=== PATIENT | female | born 1965 | race Caucasian/White ===

== ENCOUNTER 2019-12-19 08:49 | Outpatient (CLI) | payer OTHER, SELFPAY ==
--- NOTE | 2019-12-19 08:55 | MM_ITS ---
WS: [id number] DIAGNOSTIC BILATERAL DIGITAL MAMMOGRAM WITH CAD HISTORY: HX OF BREAST CA COMPARISON: 12/17/2018, 11/29/2017 and 11/27/2016 TECHNIQUE: Bilateral craniocaudad, mediolateral oblique, and mediolateral views are submitted. Comput er aided detection utilized. Breast composition: There are scattered areas of fibroglandular density. Volume loss and postsurgical lumpectomy changes in the LEFT breast towards the upper outer quadrant. No new or increasing soft ti ssue mass or asymmetries. No suspicious calcifications. Long-term stability of a focal asymmetry uppe r outer quadrant RIGHT breast. MM/[place] [id number] IMPRESSION: BI-RADS: 2-Benign FOLLOW UP: 1 Year Follow-up
== END 2019-12-19 08:50 | disposition home or self-care (01) ==
LOC: RADSHAW 08:52
PROVIDERS: PCP Internal Medicine; Visit Provider Internal Medicine Medical Oncology
DX: Z85.3 Personal history of malignant neoplasm of breast (principal)
CPT/HCPCS: 77066

== ENCOUNTER 2019-12-22 06:01 | Outpatient (CLI) | payer OTHER, SELFPAY ==
[2019-12-22 11:10] LABS: Basophils # 0.1 10^3/uL (0.0-0.1); Basophils % 0.8 %; Eosinophils # 0.1 10^3/uL (0.0-0.8); Eosinophils % 0.8 %; Hematocrit 39.6 % (37.0-47.0); Mean Corpuscular HGB Conc 32.8 g/dL (30.0-36.0); Mean Corpuscular Hemoglobin 29.5 pg (28.0-34.0); Mean Platelet Volume 12.4 fL (7.4-10.4); Monocytes # 0.6 10^3/uL (0.2-0.9); Monocytes % 7.3 %; Neutrophils % 51.8 %; Nucleated Red Blood Cells % 0 %; Platelet Count 108 10^3/cmm (130-400); Red Cell Distribution Width 12.4 % (12.1-15.1); White Blood Count 7.7 10^3/uL (4.0-10.0)
[2019-12-22 11:44] LABS: Alanine Aminotransferase 16 U/L (0-33); Albumin Level 4.5 g/dL (3.5-5.2); Alkaline Phosphatase 68 IU/L (35-105); Anion Gap 13.4 (5-19); Aspartate Amino Transferase 16 U/L (0-32); Blood Urea Nitrogen 23 mg/dL (6-20); Carbon Dioxide 24 mmol/L (22-29); Chloride 105 mmol/L (98-107); Globulin 3.3 g/dL (1.3-4.6); Glomerular Filtration Rate 75.3 mL/min (90-130); Glucose 103 mg/dL (65-115); Osmolality Calculated 283 mOsm/kg (285-295); Potassium 4.4 mmol/L (3.5-5.1); Sodium 138 mmol/L (136-145); Total Bilirubin 0.4 mg/dL (0.15-1.2); Total Protein 7.8 g/dL (6.6-8.7)
[2019-12-23 02:00] LABS: 25 Hydroxy Vitamin D 99 ng/mL (30-100)
[2019-12-23 09:26] LABS: LAB Peripheral Smear Sent for Review
== END 2019-12-22 23:55 | disposition home or self-care (01) ==
PROVIDERS: PCP Internal Medicine; Visit Provider Internal Medicine Medical Oncology
DX: C50.412 Malignant neoplasm of upper-outer quadrant of left female breast (principal); E55.9 Vitamin D deficiency, unspecified
CPT/HCPCS: 36415; 80053; 82306; 85025

== ENCOUNTER 2020-04-01 09:07 | Outpatient (CLI) | payer OTHER, SELFPAY ==
[2020-04-01 09:57] LABS: Basophils # 0.1 10^3/uL (0.0-0.1); Basophils % 0.9 %; Eosinophils # 0.1 10^3/uL (0.0-0.8); Eosinophils % 1.1 %; Hematocrit 40.2 % (37.0-47.0); Hemoglobin 13.4 g/dL (11.5-15.3); Lymphocytes # 2.7 10^3/uL (0.8-4.8); Lymphocytes % 38.9 %; Mean Corpuscular HGB Conc 33.3 g/dL (30.0-36.0); Mean Corpuscular Hemoglobin 29.8 pg (28.0-34.0); Mean Corpuscular Volume 89.3 fL (81-99); Mean Platelet Volume 11.9 fL (7.4-10.4); Monocytes # 0.5 10^3/uL (0.2-0.9); Monocytes % 7.7 %; Neutrophils # 3.59 10^3/uL (1.8-7.7); Neutrophils % 51.3 %; Nucleated Red Blood Cells % 0 %; Platelet Count 160 10^3/cmm (130-400); Red Cell Distribution Width 12.7 % (12.1-15.1)
[2020-04-01 09:59] LABS: LAB Peripheral Smear Sent for Review
== END 2020-04-01 09:08 | disposition home or self-care (01) ==
LOC: ONCMED 09:11
PROVIDERS: PCP Internal Medicine; Visit Provider Internal Medicine Medical Oncology
DX: C50.412 Malignant neoplasm of upper-outer quadrant of left female breast (principal); Z17.1 Estrogen receptor negative status [ER-]; D69.6 Thrombocytopenia, unspecified
CPT/HCPCS: 36415; 85025

== ENCOUNTER → 2020-12-24 08:09 | Outpatient (BNVA) | payer OTHER, SELFPAY | PROVIDERS: Family Provider Family Medicine; PCP Family Medicine; Visit Provider Family Medicine | DX: Z76.89 Persons encountering health services in other specified circumstances (principal); Z13.220 Encounter for screening for lipoid disorders; Z13.6 Encounter for screening for cardiovascular disorders | CPT/HCPCS: 80053; 80061; 84443; 85025 ==

== ENCOUNTER 2021-02-08 09:10 | Outpatient (CLI) | payer OTHER, SELFPAY ==
--- NOTE | 2021-02-08 09:30 | MM_ITS ---
WS: [id number] DIAGNOSTIC BILATERAL DIGITAL MAMMOGRAM WITH CAD HISTORY: HX OF BREAST CA COMPARISON: 12/19/2019, 12/17/2018 and 11/29/2017 TECHNIQUE: Bilateral craniocaudad, mediolateral oblique, and mediolateral views are submitted. Comput er aided detection utilized. Breast composition: There are scattered areas of fibroglandular density. Architectural distortion and asymmetry in the upper outer quadrant of the LEFT breast at the scar site. Reviewing multiple prior examinations the postsurgical site is very similar to 11/29/2017. No recurrent mass is or calcification s identified. MM/[place] [id number] IMPRESSION: BI-RADS: 2-Benign FOLLOW UP: 1 Year Follow-up
== END 2021-02-08 09:11 | disposition home or self-care (01) ==
LOC: RADSHAW 09:15
PROVIDERS: PCP Family Medicine; Visit Provider Family Medicine
DX: Z85.3 Personal history of malignant neoplasm of breast (principal)
CPT/HCPCS: 77066

== ENCOUNTER → 2021-11-09 14:30 | Outpatient (BNVA) | payer OTHER, SELFPAY | PROVIDERS: PCP Family Medicine; Visit Provider Family Medicine | DX: M25.552 Pain in left hip (principal); G89.29 Other chronic pain; M79.641 Pain in right hand; M79.642 Pain in left hand; Z13.220 Encounter for screening for lipoid disorders; Z13.6 Encounter for screening for cardiovascular disorders | CPT/HCPCS: 80053; 85651; 86140 ==

== ENCOUNTER → 2022-01-02 06:59 | Outpatient (BNVA) | payer OTHER, SELFPAY | PROVIDERS: PCP Family Medicine; Visit Provider Student in an Organized Health Care Education/Training Program | DX: M16.12 Unilateral primary osteoarthritis, left hip (principal); G57.12 Meralgia paresthetica, left lower limb | CPT/HCPCS: 73502 ==

== ENCOUNTER → 2022-08-21 09:15 | Outpatient (BNVA) | payer OTHER, SELFPAY | PROVIDERS: PCP Family Medicine; Visit Provider Family Medicine | DX: Z13.220 Encounter for screening for lipoid disorders (principal); Z13.6 Encounter for screening for cardiovascular disorders; M16.12 Unilateral primary osteoarthritis, left hip; K21.9 Gastro-esophageal reflux disease without esophagitis | CPT/HCPCS: 80053; 80061 ==

== ENCOUNTER 2023-04-18 09:29 | Emergency (ER) | payer BC, OTHER, SELFPAY ==
[2023-04-18 09:34] VITALS: BP 153/85; PULSE 105; RESP 15; TEMP 36.6; O2SAT 98; BMI 30.5
--- NOTE | 2023-04-18 09:41 | CTR_ITS ---
PROCEDURE INFORMATION: Exam: CT Orbits With Contrast Exam date and time: 04/18/2023 10:21 AM Age: 58 years old Clinical indication: Injury or trauma; Other: Hit in face with gate; Blunt trauma (contusions or hematomas); Orbit/periorbital; Injury details: History--hit in the head/eye with a cattle gate last night. PT reports nausea and vomiting throughout the night. PT denies loc but reports she was dazed and knocked to the ground. Bruising noted to right eye TECHNIQUE: Imaging protocol: Computed tomography of the orbits with contrast. Radiation optimization: All CT scans at this facility use at least one of these dose optimization techniques: automated exposure control; mA and/or kV adjustment per patient size (includes targeted exams where dose is matched to clinical indication); or iterative reconstruction. Contrast material: OMNI 350; Contrast volume: 100 ml; Contrast route: INTRAVENOUS (IV); REPORTING DATA: Count of CT and Cardiac NM exams in prior 12 months: This patient has received 0 known CTs and 0 known cardiac nuclear medicine studies in the 12 months prior to the current study. COMPARISON: CT head wo con* [id number] 04/18/2023 10:18 AM RADIATION DOSE METRICS: Total DLP (mGy-cm): 308.38 FINDINGS: Paranasal sinuses: Normal. No air-fluid levels. Orbital cavities: There is mild preseptal soft tissue swelling on the right. Soft tissue swelling extends supraorbital. Bones/joints: No acute fracture. Soft tissues: See above. CT/[place] [id number] IMPRESSION: Preseptal and supraorbital soft tissue swelling. No evidence for facial fracture.
--- NOTE | 2023-04-18 09:51 | ED_ITS ---
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 Denies any neck pain denies any vision changes. Associated symptoms: Deny nausea, neck pain or vomiting Review of Systems Const: Denies: fever(s), chills, body aches or change in appetite Eyes: Denies: blurry vision ENMT: Denies: throat pain or dental pain Card: Denies: chest pain Resp: Denies: dyspnea GI: Denies: abdominal pain, nausea, vomiting or diarrhea Musc: Denies: neck pain or back pain Skin/Breast: Denies: rash Neuro: Reports: headache(s) PFSH ED PFSH: Medical History Meralgia paresthetica of left side Degenerative joint disease of left hip Hx of breast cancer Social History Smoking and tobacco/nicotine status: never used tobacco/nicotine Alcohol intake: never Female Reproductive History: Spontaneous abortions: No Physical Exam Const: COMMON NORMALS: no acute distress, patient oriented x3 and healthy appearing HENMT: COMMON NORMALS: normocephalic; head/scalp not atraumatic (contusion noted to right forehead) HEAD & SCALP: normocephalic; not atraumatic (contusion noted to right forehead) Eye: COMMON NORMALS: Equal, round and reactive pupils present and EOMs intact bilaterally PUPIL: Yes Equal, round and reactive pupils present Neck/C-Spine: COMMON NORMALS: full ROM and supple CERVICAL SPINE: Yes cervical ROM normal and No Cervical spine tenderness Chest: COMMONS NORMALS: normal inspection of the chest Resp: COMMON NORMALS: normal respiratory effort, No retractions, No use of accessory muscles and clear to auscultation bilaterally AUSCULTATION: clear to auscultation bilaterally Cardio: COMMON NORMALS: regular rate, regular rhythm and No murmurs present (Cardio) RATE: regular rate RHYTHM: regular rhythm Extremity: COMMON NORMALS: normal to inspection and full ROM Neuro: COMMON NORMALS: patient oriented x3, moves all extremities and no focal motor deficits Psych: COMMON NORMALS: mental status grossly normal, Normal thought process present and cooperative THOUGHT PROCESS: Normal thought process present Skin: COMMON NORMALS: no rashes or lesions noted and no wounds GENERAL SKIN EXAM: no rashes or lesions noted Course Vital Signs: Vital signs: Vital Signs Temperature 97.8 F 04/18/23 09:34 Pulse Rate 105 H 04/18/23 09:34 Respiratory Rate 15 04/18/23 09:34 Blood Pressure 153/85 04/18/23 09:34 Pulse Oximetry 98 04/18/23 09:34 Oxygen Delivery Me thod Room Air 04/18/23 09:34 MDM - Head Injury Medcial Decision Making Patient presents with closed head injury CTs here are normal she is well- appearing here she is stable for discharge she is follow-up with PCP and return if worsening she understands agrees to plan. Medical Records I reviewed the patient's medical records. Lab Data Radiology Impressions Orbit CT 04/18/23 09:41 IMPRESSION: Preseptal and supraorbital soft tissue swelling. No evidence for facial fracture. Head CT 04/18/23 09:51 IMPRESSION: No acute intracranial abnormality identified. All radiology interpretation(s) finalized by discharge Discharge Plan Discharge Patient Disposition: Home Clinical Impression: Closed head injury Condition: Stable Prescriptions: No Action pantoprazole 40 mg tablet,delayed release (DR/EC) 40 mg PO BID celecoxib 100 mg capsule 100 mg PO BID Discharge Orders: Discharge ED (Routine); Ordered 04/18/23 Ordered By: Yeison Pineda Referrals: José Luis Dickerson DO [Primary Care Provider] - 4-7 days Discharge Diet: Advance as tolerated Discharge Activity: Resume usual activity Patient Instructions: Head Injury (ED) Stand Alone Forms: Work/School Release Coding Level of Care Code ED [employer] for Myron Vincent
--- NOTE | 2023-04-18 09:51 | CTR_ITS ---
PROCEDURE INFORMATION: Exam: CT Head Without Contrast Exam date and time: 04/18/2023 10:18 AM Age: 58 years old Clinical indication: Injury or trauma; Other: Hit in face with gate; Blunt trauma (contusions or hematomas); Without loss of consciousness; Patient HX: History--hit in the head/eye with a cattle gate last night. PT reports nausea and vomiting throughout the night. PT denies loc but reports she was dazed and knocked to the ground. Bruising noted to right eye at this time. TECHNIQUE: Imaging protocol: Computed tomography of the head without contrast. Radiation optimization: All CT scans at this facility use at least one of these dose optimization techniques: automated exposure control; mA and/or kV adjustment per patient size (includes targeted exams where dose is matched to clinical indication); or iterative reconstruction. REPORTING DATA: Count of CT and Cardiac NM exams in prior 12 months: This patient has received 0 known CTs and 0 known cardiac nuclear medicine studies in the 12 months prior to the current study. COMPARISON: No relevant prior studies available. RADIATION DOSE METRICS: Total DLP (mGy-cm): 1050.95 FINDINGS: Brain: No acute hemorrhage identified. No large territorial areas of hypoattenuation concerning for ischemic infarct identified. No intracranial mass effect. Cerebral ventricles: The ventricles are within normal limits. Paranasal sinuses: The visualized sinuses are unremarkable. Mastoid air cells: The visualized mastoid air cells are well aerated. Bones/joints: No cranial fracture identified. Soft tissues: Extracranial superficial soft tissue swelling overlying the right frontal and periorbital region. CT/CT head wo con* [id number] IMPRESSION: No acute intracranial abnormality identified.
[2023-04-18] MEDS: iohexol 350 mg/mL 500 mL Btl (per mL) IV (10:17)
== END 2023-04-18 10:59 | disposition home or self-care (01) ==
PROVIDERS: Emergency Provider Emergency Medicine; PCP Family Medicine
DX: S00.83XA Contusion of other part of head, initial encounter (principal); Z85.3 Personal history of malignant neoplasm of breast; W20.8XXA Other cause of strike by thrown, projected or falling object, initial encounter
CPT/HCPCS: 70450; 70481; 99285; Q9967

== ENCOUNTER 2023-11-07 08:30 | Outpatient (CLI) | payer OTHER, SELFPAY ==
--- NOTE | 2023-11-07 08:30 | MM_ITS ---
WS: [id number] DIAGNOSTIC BILATERAL DIGITAL BREAST TOMOSYNTHESIS MAMMOGRAPHY WITH CAD HISTORY: personal history of breast CA COMPARISON: 02/08/2021, 12/19/2019 TECHNIQUE: Bilateral craniocaudad, mediolateral oblique, and mediolateral views are submitted with to mosjamin and SM. Computer aided detection utilized. Breast composition: There are scattered areas of fibroglandular density. Volume loss LEFT breast from prior lumpectomy. Mild trabecular thickening. Lumpectomy site is noted in the upper outer quadrant. No interval change since 02/08/2021. No recurrent mass. MM/[place] [id number] IMPRESSION: BI-RADS: 2-Benign FOLLOW UP: 1 Year Follow-up
== END 2023-11-07 08:31 | disposition home or self-care (01) ==
PROVIDERS: PCP Family Medicine; Visit Provider Family Medicine
DX: Z85.3 Personal history of malignant neoplasm of breast (principal); R92.323 Mammographic fibroglandular density, bilateral breasts; N64.59 Other signs and symptoms in breast
CPT/HCPCS: 77062; G0279

== ENCOUNTER → 2024-02-21 10:22 | Outpatient (BNVA) | payer OTHER, SELFPAY | PROVIDERS: PCP Family Medicine; Visit Provider Family Medicine | DX: Z01.419 Encounter for gynecological examination (general) (routine) without abnormal findings (principal) | CPT/HCPCS: 87624 ==

== ENCOUNTER → 2025-02-09 16:11 | Outpatient (BNVA) | payer OTHER, SELFPAY | PROVIDERS: PCP Family Medicine; Visit Provider Family Medicine | DX: Z13.6 Encounter for screening for cardiovascular disorders (principal) | CPT/HCPCS: 80053; 80061; 84439; 84443; 85025 ==

== ENCOUNTER 2025-02-19 14:48 | Outpatient (CLI) | payer OTHER, SELFPAY ==
--- NOTE | 2025-02-19 15:00 | MM_ITS ---
WS: [id number] BILATERAL 3D TOMOSYNTHESIS DIGITAL DIAGNOSTIC MAMMOGRAPHY WITH CAD CLINICAL INFORMATION: hx of breast ca HISTORY: LEFT breast cancer. History of lumpectomy. COMPARISON: 2023 TECHNIQUE: Bilateral CC, MLO, and ML views. FINDINGS: Scattered fibroglandular densities bilaterally. Prior postoperative changes lumpectomy upper outer LEFT breast with parenchymal fibrosis. Treatment-related changes LEFT breast. No suspicious focal mass, asymmetry, calcifications, or architectural distortion. No evidence of malignancy. MM/MM diag tomosynthesis [id number] IMPRESSION: DENSITY: There are scattered areas of fibroglandular density. BI-RADS: 2 - Benign. FOLLOW UP: 1 Year Follow-up Recommend return to annual diagnostic mammography.
== END 2025-02-19 14:49 | disposition home or self-care (01) ==
LOC: RAD 14:51
PROVIDERS: PCP Family Medicine; Visit Provider Family Medicine
DX: Z12.31 Encounter for screening mammogram for malignant neoplasm of breast (principal); R92.323 Mammographic fibroglandular density, bilateral breasts; N64.89 Other specified disorders of breast
CPT/HCPCS: 77062; G0279